=== PATIENT | male | born 1950 | race Caucasian/White ===

== ENCOUNTER → 2017-12-28 | Day surgery (SDC) | payer OTHER, MEDICARE ==
[~2017-12-28] MED LIST: ARIP5TAB13 PO; BUPR300T4 PO; GABA-585 PO; IBUPROFEN 600 MG TABLET. PO PRN; IV NORMAL SALINE 1,000ML 1,000 ML IV SCH; IV RINGERS SOLUTION,LACTATED 1,000 ML IV SCH; LEXAPRO5 MG PO; LIDOCAINE 2% PF Vial for OR 5 ML VIAL. ONE; ONDANSETRON PF 4 MG/2 ML VIAL. IV ONE; ONDANSETRON PF 4 MG/2 ML VIAL. IV PRN; PROP20TA PO; PROPOFOL 40 ML IV ONE; TAMS0.4C2 PO; TIZA4TAB8 PO
[2017-12-28 11:20] VITALS: BP 109/57
--- NOTE | 2017-12-31 15:07 | PATHOLOGY ---
[facility] Accession Number: [id number] . 01 Material submitted: . PART A: BIOPSY, ANTRUM GASTRITIS PART B: DESCENDING POLYP . 01 Clinical history: . Dysphagia, screening . 02 Diagnosis: A. Gastric biopsies, antrum: - Chronic gastritis, mild. . B. Colon biopsy, descending colon polyp: - Tubular adenoma. QRQ/12/31/2017 . 02 Comment: Sections of the gastric biopsy reveal gastric antral/body transition mucosa showing congestion and mild chronic inflammation. An immunoperoxidase stain for Helicobacter is negative for Helicobacter organisms. . Sections of the descending colon biopsy reveal a tubular adenoma showing no high-grade dysplasia or evidence of malignancy. (JPM:mgr; 12/31/17) . Special Stain Performed: Immunoperoxidase stain for Helicobacter (A1) . 02 Electronically signed: . Koko Cárdenas MD, Pathologist NPI- [id number] . 01 Gross description: . A. Received in formalin labeled "Bullis, Nathen, antrum gastritis," is a single segment of estrada soft tissue measuring 0.5 cm in maximum dimension. The specimen is entirely submitted in cassette A1. . B. Received in formalin labeled "Bullis, Nathen, descending colon polyp," is a single segment of estrada soft tissue measuring 0.4 cm in maximum dimension. The specimen is entirely submitted in cassette B1. (TSD; 12/28/2017) TOB/TOB . 02 CPT . 841028, 798514, [id number] Performed at: 01 [facility] [address], [place] [id number] MD Manolo Lima MD Phone: [phone] Performed at: 02 [facility] [address] [place], [place] [id number] MD Koko Cárdenas MD Phone: [phone]
== END ==
LOC: SURG 08:48
PROVIDERS: ATTEND Internal Medicine Gastroenterology
DX: Z12.11 Encounter for screening for malignant neoplasm of colon (principal); D12.4 Benign neoplasm of descending colon; K29.50 Unspecified chronic gastritis without bleeding; K57.30 Diverticulosis of large intestine without perforation or abscess without bleeding
CPT/HCPCS: 43239; 45380; J2704; J7120; 88305; 88342; J3010; J2001